=== PATIENT | female | born 2005 | race Caucasian/White ===

== ENCOUNTER 2025-04-10 18:21 | Emergency (ER) | payer SELFPAY ==
[2025-04-10 19:38] LABS: Absolute Lymphocytes (CBC) 1.6 K/uL (0.7-4.9); Hematocrit 40.7 % (36.0-45.0); Hemoglobin 13.6 g/dL (12.0-15.0); MCH 27.1 pg (27.0-35.0); MCHC 33.3 g/dL (32.0-36.0); MCV 81.5 fL (80-100); MPV 7.8 fL (7.6-11.3); Nucleated RBC Absolute Count 0.0 (0-0); Nucleated Red Blood Cells % 0.0 % (0-0); RBC Red Blood Cell Count 5.00 M/uL (3.86-4.86); White Blood Count 9.30 thou/uL (4.3-10.9)
[2025-04-10] MEDS ORDERED: KETOROLAC 30 MG/ML INJ ONE (19:39)
[2025-04-10] MEDS ORDERED: ONDANSETRON 4 MG/2 ML VIAL ONE (19:39)
[2025-04-10] MEDS ORDERED: FAMOTIDINE 20 MG/2 ML VIAL IV ONE (19:40)
[2025-04-10] MEDS ORDERED: NA CHLORIDE 0.9% 1,000 ML ONE (19:40)
[2025-04-10 20:00] LABS: ALT/SGPT 19.0 U/L (13-56); AST/SGOT 14.0 U/L (15-37); Albumin 3.6 g/dL (3.4-5.0); Albumin/Globulin Ratio 0.8 (1.1-1.8); Alkaline Phosphatase 87.0 U/L (45-117); Anion Gap 7.8 mEq/L (5.0-15.0); BUN Blood Urea Nitrogen 10.0 mg/dL (7-18); Globulin 4.5 g/dL (2.3-3.5); Glucose Level 99.0 mg/dL (74-106); Lipase 19.0 U/L (13-75); Potassium 3.8 mEq/L (3.5-5.1)
--- NOTE | 2025-04-10 20:41 | RAD REPORT ---
Abdomen Exam Limited: 04/10/2025 8:32 PM CLINICAL HISTORY: ABD PAIN STUDY: Limited right upper quadrant ultrasound of abdomen. COMPARISON: None. FINDINGS: Liver: Within normal limits. Bile ducts: No intrahepatic or extrahepatic biliary ductal dilatation. Common bile duct measures 3 mm. Gallbladder: Cholelithiasis. No gallbladder wall thickening, pericholecystic fluid, or sonographic Mu rphy sign identified. The gallbladder is distended. IMPRESSION: Distended gallbladder with cholelithiasis but no specific imaging features to suggest acute cholecyst itis.
--- NOTE | 2025-04-11 00:37 | RAD REPORT ---
EXAM DESCRIPTION: Abdomen Pelvis W Contrast RadLex: CT ABDOMEN PELVIS WITH IV CONTRAST CLINICAL HISTORY: 20 years Female; ABD PAIN; IV ONLY Bed Name: [facility] TECHNIQUE: CT of the abdomen and pelvis [with] intravenous contrast. All CT scans at this facility use dose modulation, iterative reconstruction, and/or weight based dosi ng when appropriate to reduce radiation dose to as low as reasonably achievable. COMPARISON: None. FINDINGS: Lower thorax: Lung bases are clear Abdomen: Stomach: Within normal limits Liver: No focal lesions. No intrahepatic ductal distention. Gallbladder: Mildly distended. Pancreas: Within normal limits Spleen: Within normal limits Right kidney: No hydronephrosis. No focal lesion. Left kidney: No hydronephrosis. No focal lesion. Adrenal glands: Within normal limits Vascular structures: Within normal limits Nodes: No lymphadenopathy by size criteria Pelvis: Small bowel: No significant distention. Appendix: Within normal limits Colon: No distention or acute pericolonic edema. Peritoneum: No free air. Trace free fluid in the pelvis. Bones: No acute bone findings. Bladder: Unremarkable. Reproductive organs: No acute findings. Soft tissues: Small fat-containing umbilical hernia. IMPRESSION: 1. No acute abdominopelvic findings. 2. Trace free fluid in the pelvis, likely physiologic. Electronically signed by: Duane Batres MD 04/11/2025 12:05 AM CDT TYG Due to temporary technical issues with the PACS/Ridemakerz reporting system, reports are being mariola d by the in-house radiologist without review as a courtesy to ensure prompt reporting the interpreting radiologist is fully responsible for the content of the report. Transcribed Date/Time: 04/11/2025 12:36 AM
--- NOTE | 2025-04-11 00:39 | ER ---
Nurse's Notes [facility] Name: Anita Kamara Age: 20 yrs Sex: Female : 2005 Arrival Date: 04/10/2025 Time: 18:21 Bed 26 Private MD: Diagnosis: Cholelithiasis without cholecystitis, Acute upper abdominal pain Presentation: 04/10 18:29 Chief complaint: Patient states: epigastric and RUQ pain with nausea and frequent soft me1 bowel movements starting today. Chills. Coronavirus screen: Vaccine status: Patient reports being unvaccinated. Ebola Screen: No symptoms or risks identified at this time. Initial Sepsis Screen: Does the patient meet any 2 criteria? HR > 90 bpm. Does the patient have a suspected source of infection? No. Patient's initial sepsis screen is negative. Risk Assessment: Do you want to hurt yourself or someone else? Patient reports no desire to harm self or others. Onset of symptoms was April 10, 2025 at 08:00. 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 - Infectious Disease History:: Denies. - Social history:: Smoking status: Patient denies any tobacco usage or history of. Screenin:52 [facility] ED Fall Risk Assessment (Adult) History of falling in the last 3 months, jb4 including since admission No falls in past 3 months (0 pts) Confusion or Disorientation No (0 pts) Intoxicated or Sedated No (0 pts) Impaired Gait No (0 pts) Mobility Assist Device Used No (0 pt) Altered Elimination No (0 pt) Score/Fall Risk Level 0 - 2 = Low Risk Oriented to surroundings, Maintained a safe environment. Abuse screen: Denies threats or abuse. Nutritional screening: No deficits noted. Tuberculosis screening: No symptoms or risk factors identified. Assessment: 19:52 General: Appears in no apparent distress. comfortable, Behavior is calm, cooperative, jb4 appropriate for age. Pain: Complains of pain in abdomen Pain does not radiate. Pain currently is 5 out of 10 on a pain scale. Neuro: Level of Consciousness is awake, alert, obeys commands, Oriented to person, place, time, situation. Cardiovascular: Patient's skin is warm and dry. Respiratory: Airway is patent Respiratory effort is even, unlabored, Respiratory pattern is regular, symmetrical. GI: Abdomen is non-distended, obese, Reports lower abdominal pain, upper abdominal pain, nausea. Derm: Skin is intact, Skin is pink, warm \T\ dry. Musculoskeletal: Circulation, motion, and sensation intact. Range of motion: intact in all extremities. 20:55 Reassessment: Patient appears in no apparent distress at this time. Patient and/or jb4 family updated on plan of care and expected duration. Pain level reassessed. Patient is alert, oriented x 3, equal unlabored respirations, skin warm/dry/pink. 21:55 Reassessment: Patient appears in no apparent distress at this time. Patient and/or jb4 family updated on plan of care and expected duration. Pain level reassessed. Patient is alert, oriented x 3, equal unlabored respirations, skin warm/dry/pink. 23:05 Reassessment: Patient appears in no apparent distress at this time. Patient and/or jb4 family updated on plan of care and expected duration. Pain level reassessed. Patient is alert, oriented x 3, equal unlabored respirations, skin warm/dry/pink. 04/11 00:18 Reassessment: Patient appears in no apparent distress at this time. Patient and/or jb4 family updated on plan of care and expected duration. Pain level reassessed. Patient is alert, oriented x 3, equal unlabored respirations, skin warm/dry/pink. 01:33 Reassessment: Patient appears in no apparent distress at this time. Patient and/or jb4 family updated on plan of care and expected duration. Pain level reassessed. Patient is alert, oriented x 3, equal unlabored respirations, skin warm/dry/pink. Pt given community resource list to assist with continuity of care and medication assistance. Pt verbalized understanding of d/c and follow up instructions. Vital Signs: 04/10 18:29 BP 133 / 89; Pulse 95; Resp 17; Temp 98.1; Pulse Ox 100% ; Weight 129.27 kg; Height 5 me1 ft. 9 in. ; Pain 5/10; 20:30 BP 118 / 71; Pulse 74; Resp 16; Pulse Ox 100% on R/A; jb4 21:45 BP 115 / 68; Pulse 75; Resp 16; Pulse Ox 100% on R/A; jb4 23:05 BP 116 / 65; Pulse 65; Resp 16; Pulse Ox 100% on R/A; jb4 04/11 00:18 BP 105 / 61; Pulse 67; Resp 16; Pulse Ox 99% on R/A; jb4 00:45 BP 103 / 55; Pulse 67; Resp 16; Pulse Ox 97% on R/A; jb4 04/10 18:29 Body Mass Index 42.09 (129.27 kg, 175.26 cm) [facility] [place] 04/10 18:29 Pain Scale: Adult [facility] [place] ED Course: 04/10 18:24 Patient arrived in ED. mr 18:24 Samira Melendez PA-C is PHCP. sb4 18:24 Earnest Beaver MD is Attending Physician. sb4 18:31 Triage completed. me1 18:31 Arm band placed on Patient placed in waiting room. nd1 19:32 CBC with Diff Sent. vk 19:32 CMP Sent. vk 19:32 Lipase Sent. vk 19:32 Initial lab(s) drawn, by nd, sent to lab. Inserted saline lock: 20 gauge in left vk antecubital area, using aseptic technique. Blood collected. Flushed with 10 mL NS. 19:49 Attending Physician role handed off by Earnest Beaver MD sp4 19:49 Ludwin Lyle MD is Attending Physician. sp4 19:52 Patient has correct armband on for positive identification. Bed in low position. Call jb4 light in reach. Side rails up X 1. Provided Education on: plan of care. 19:52 No provider procedures requiring assistance completed. jb4 20:34 US Abdomen Limited In Process Unspecified. EDMS 21:44 Radiology exam delayed due to test not completed at this time. 22:49 CT Abd/Pelvis - IV Contrast Only In Process Unspecified. EDMS 23:04 Garrison Marshall, RN is Primary Nurse. jb4 04/11 00:36 Harvey Robledo MD is Referral Physician. sp4 01:34 IV discontinued, intact, bleeding controlled, No redness/swelling at site. Pressure jb4 dressing applied. Administered Medications: 04/10 19:52 Drug: Famotidine IVP 20 mg IVP once; dilute with 10 mL 0.9% NaCl; give over 2 minutes jb4 Route: IVP; Site: left antecubital; 22:45 Follow up: Response: No adverse reaction; Marked relief of symptoms jb4 19:52 Drug: TORadol - Ketorolac IVP 15 mg IVP once Route: IVP; Site: left antecubital; jb4 22:45 Follow up: Response: No adverse reaction; Marked relief of symptoms jb4 19:52 Drug: Ondansetron IVP 4 mg IVP once; over 2 minutes Route: IVP; Site: left antecubital; jb4 22:45 Follow up: Response: No adverse reaction; Marked relief of symptoms jb4 19:52 Drug: NS 0.9% IV 1000 ml IV at 1 bolus Per protocol; to be given as a bolus over 60 jb4 minutes Route: IV; Rate: 1 bolus; Site: left antecubital; 21:00 Follow up: Response: No adverse reaction; IV Status: Completed infusion; IV Intake: jb4 1000ml Medication: :52 VIS not applicable for this client. jb4 Intake: 21:00 IV: 1000ml; Total: 1000ml. jb4 Outcome: 04/11 00:38 Discharge ordered by . sp4 01:34 Discharged to home ambulatory, with family, jb4 01:34 Condition: stable 01:34 Discharge instructions given to patient, Instructed on discharge instructions, follow up and referral plans. no drinking with medication, no driving heavy equipment, medication usage, Demonstrated understanding of instructions, follow-up care, medications, Prescriptions given X 4, 01:36 Patient left the ED. jb4 Signatures: Dispatcher [employer] EDUT RuizAvani mares, Reg Reg mr LizzieRandy James, RN RN jb4 Samira Melendez PA-C PA-C sb4 Potepalov, Sergey, MD MD sp4 Cadence Mustafa RN RN me1 Seema Samuel Corrections: (The following items were deleted from the chart) 01:34 01:33 BP 103 / 55; Pulse 67bpm; Resp 16bpm; Pulse Ox 97% RA; jb4 jb4 01:35 01:33 Reassessment: Patient appears in no apparent distress at this time. Patient jb4 and/or family updated on plan of care and expected duration. Pain level reassessed. Patient is alert, oriented x 3, equal unlabored respirations, skin warm/dry/pink. jb4
--- NOTE | 2025-04-11 00:39 | EDPHYS ---
Physician Documentation [facility] Name: Anita Kamara Age: 20 yrs Sex: Female : 2005 Arrival Date: 04/10/2025 Time: 18:21 Bed 26 Private MD: ED Physician Ludwin Lyle HPI: 04/10 18:47 This 20 yrs old Female presents to ER via Ambulatory with complaints of Abdominal Pain, sb4 Nausea. 18:47 Epigastric abdominal pain since this morning. States when she was laying on her right sb4 side she felt pain in her right side. Reports nausea and frequent BMs that are soft in nature, no diarrhea. Denies any vomiting. Denies any prior episodes of this. 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 - Infectious Disease History:: Denies. - Social history:: Smoking status: Patient denies any tobacco usage or history of. ROS: 18:47 Constitutional: Negative for fever, chills, and weight loss, sb4 18:47 Abdomen/GI: Positive for abdominal pain, nausea, 18:47 All other systems are negative, Exam: 18:47 Constitutional: This is a well developed, well nourished patient who is awake, alert, sb4 and in no acute distress. Head/Face: Normocephalic, atraumatic. Eyes: Extra-ocular motions intact. Periorbital areas with no swelling, redness, or edema. ENT: Mucous membranes moist. Cardiovascular: Regular rate and rhythm with a normal S1 and S2. Respiratory: No increased work of breathing, no retractions or nasal flaring. Abdomen/GI: Soft, non-tender, no distension. Skin: Warm, dry with normal turgor. Normal color with no rashes, no lesions, and no evidence of cellulitis. Vital Signs: 18:29 BP 133 / 89; Pulse 95; Resp 17; Temp 98.1; Pulse Ox 100% ; Weight 129.27 kg; Height 5 me1 ft. 9 in. ; Pain 5/10; 20:30 BP 118 / 71; Pulse 74; Resp 16; Pulse Ox 100% on R/A; jb4 21:45 BP 115 / 68; Pulse 75; Resp 16; Pulse Ox 100% on R/A; jb4 23:05 BP 116 / 65; Pulse 65; Resp 16; Pulse Ox 100% on R/A; jb4 04/11 00:18 BP 105 / 61; Pulse 67; Resp 16; Pulse Ox 99% on R/A; jb4 00:45 BP 103 / 55; Pulse 67; Resp 16; Pulse Ox 97% on R/A; jb4 04/10 18:29 Body Mass Index 42.09 (129.27 kg, 175.26 cm) me1 04/10 18:29 Pain Scale: Adult me1 MDM: 04/10 18:24 Medical Screening Exam initiated sb4 18:48 Differential diagnosis: cholecystitis, Cholelithiasis, gastritis, Hepatitis, sb4 non-specific abd pain, pancreatitis, Peptic Ulcer Disease, urinary tract infection. 21:56 ED course: . sp4 23:09 ED course: Abdomen Exam Limited: 04/10/2025 8:32 PM CLINICAL HISTORY: ABD PAIN STUDY: sp4 Limited right upper quadrant ultrasound of abdomen. COMPARISON: None. FINDINGS: Liver: Within normal limits. Bile ducts: No intrahepatic or extrahepatic biliary ductal dilatation. Common bile duct measures 3 mm. Gallbladder: Cholelithiasis. No gallbladder wall thickening, pericholecystic fluid, or sonographic Frank sign identified. The gallbladder is distended. IMPRESSION: Distended gallbladder with cholelithiasis but no specific imaging features to suggest acute cholecystitis. . 04/11 00:35 Differential diagnosis: Nonspecific abd pain, gastritis, cholecystitis, pancreatitis, sp4 diverticulitis, viral gastroenteritis, gastroenteritis. Data reviewed: vital signs, nurses notes, radiologic studies, CT scan, ultrasound. Consideration of Admission/Observation Escalation of care including admission/observation considered. ED course: TECHNIQUE: CT of the abdomen and pelvis [with] intravenous contrast. All CT scans at this facility use dose modulation, iterative reconstruction, and/or weight based dosing when appropriate to reduce radiation dose to as low as reasonably achievable. COMPARISON: None. FINDINGS: Lower thorax: Lung bases are clear Abdomen: Stomach:Within normal limits Liver:No focal lesions. No intrahepatic ductal distention. Gallbladder: Mildly distended. Pancreas:Within normal limits Spleen:Within normal limits Right kidney:No hydronephrosis. No focal lesion. Left kidney:No hydronephrosis. No focal lesion. Adrenal glands:Within normal limits Vascular structures:Within normal limits Nodes:No lymphadenopathy by size criteria Pelvis: Small bowel:No significant distention. Appendix:Within normal limits Colon:No distention or acute pericolonic edema. Peritoneum: No free air. Trace free fluid in the pelvis. Bones: No acute bone findings. Bladder: Unremarkable. Reproductive organs: No acute findings. Soft tissues: Small fat-containing umbilical hernia. IMPRESSION: 1. No acute abdominopelvic findings. 2. Trace free fluid in the pelvis, likely physiologic. Electronically signed by: Duane Batres MD 04/11/2025 12:05 AM . 04/10 18:32 Order name: CBC with Diff; Complete Time: 19:44 sb4 04/10 18:32 Order name: CMP; Complete Time: 20:09 sb4 04/10 18:32 Order name: Lipase; Complete Time: 20:09 sb4 04/10 18:32 Order name: CT Abd/Pelvis - IV Contrast Only sb4 04/10 20:08 Order name: US Abdomen Limited; Complete Time: 21:44 sp4 04/10 18:32 Order name: IV Saline Lock; Complete Time: 19:32 sb4 04/10 18:32 Order name: Labs collected and sent; Complete Time: 19:32 sb4 Administered Medications: 04/10 19:52 Drug: Famotidine IVP 20 mg IVP once; dilute with 10 mL 0.9% NaCl; give over 2 minutes jb4 Route: IVP; Site: left antecubital; 22:45 Follow up: Response: No adverse reaction; Marked relief of symptoms jb4 19:52 Drug: TORadol - Ketorolac IVP 15 mg IVP once Route: IVP; Site: left antecubital; jb4 22:45 Follow up: Response: No adverse reaction; Marked relief of symptoms jb4 19:52 Drug: Ondansetron IVP 4 mg IVP once; over 2 minutes Route: IVP; Site: left antecubital; jb4 22:45 Follow up: Response: No adverse reaction; Marked relief of symptoms jb4 19:52 Drug: NS 0.9% IV 1000 ml IV at 1 bolus Per protocol; to be given as a bolus over 60 jb4 minutes Route: IV; Rate: 1 bolus; Site: left antecubital; 21:00 Follow up: Response: No adverse reaction; IV Status: Completed infusion; IV Intake: jb4 1000ml Disposition: 04/11 00:36 Co-signature as Attending Physician, Ludwin Lyle MD I agree with the assessment sp4 and plan of care. I reviewed the patient's care provided by Advanced Practice Provider \T\ agree w/ the diagnosis \T\ care plan. I personally saw the pt \T\ performed a substantive portion of the visit, incldng all aspects of the (History/Exam/Medical Decision Making). Disposition Summary: 04/11/25 00:38 Discharge Ordered Problem: new sp4 Symptoms: have improved sp4 Condition: Stable sp4 Diagnosis - Cholelithiasis without cholecystitis, Acute upper abdominal pain sp4 Followup: sp4 - With: Harvey Robledo MD - When: 7 - 10 days - Reason: Recheck today's complaints Discharge Instructions: - Discharge Summary Sheet sp4 - Cholelithiasis, Ikth-[id number] sp4 Forms: - Patient Portal Instructions sp4 Prescriptions: - meloxicam 15 mg Oral tablet - take 1 tablet ORAL route daily PRN pain; 30 tablet; Refills: 0, Product sp4 Selection Permitted - Protonix 40 mg Oral Tablet - take 1 tablet ORAL route once daily; 30 tablet; Refills: 0, Product Selection sp4 Permitted - Tramadol 50 mg Oral Tablet - take 1 tablet ORAL route every 8 hours as needed; 12 tablet; Refills: 0, sp4 Product Selection Permitted - ondansetron 8 mg Oral Tablet,disintegrating - take 1 tablet ORAL route every 8 hours PRN nausea; 30 tablet; Refills: 0, sp4 Product Selection Permitted Signatures: Dispatcher [employer] Garrison Schaefer RN RN jb4 Samira Melendez PA-C PAIker sb4 Ludwin Lyle MD MD sp4 Cadence Mustafa RN RN me1 Corrections: (The following items were deleted from the chart) 04/10 18:33 18:33 CBC+H.LAB.BRZ ordered. EDMS EDMS 18:33 18:33 COMPREHENSIVE METABOLIC PANEL+C.LAB.BRZ ordered. EDMS EDMS 18:33 18:33 LIPASE+C.LAB.BRZ ordered. EDMS EDMS 18:33 18:33 Test, Urine+UC.LAB.BRZ ordered. EDMS EDMS 18:33 18:33 UA Rfx Lex Cult if indicated+U.LAB.BRZ ordered. EDMS EDMS 18:33 18:33 Abdomen Pelvis W Con+CT.RAD.BRZ ordered. EDMS EDMS
[2025-04-11 01:58] VITALS: TEMP 98.1
[2025-04-11 02:02] VITALS: BP 103/55; O2SAT 97
== END 2025-04-11 01:36 | disposition home or self-care (01) ==
LOC: ER 18:21
DX: K80.20 Calculus of gallbladder without cholecystitis without obstruction (principal)
CPT/HCPCS: 36415; 74177; 76705; 80053; 83690; 85025; 96361; 96374; 96375; 99284; J2405; J7030; Q9967